=== PATIENT | male | born 1995 | race Caucasian/White ===

== ENCOUNTER 2024-02-02 20:17 | Emergency (ER) | payer BC, SELFPAY ==
[2024-02-02 20:19] VITALS: BP 132/74
[2024-02-02] MEDS: TYLENOL 1000 MG PO (20:27)
[2024-02-02 20:36] LABS: % Basophils 0.7 % (0-2); % Eosinophils 0.4 % (0-6); % Immature Granulocytes 0.4 % (0-0.5); % Lymphocytes 26.9 % (20.5-51.1); % Monocytes 6.5 % (1.7-9.3); % Neutrophils 65.1 % (42.2-75.2); Absolute Basophils 0.1 10^3/uL (0-0.2); Absolute Eosinophils 0.1 10^3/uL (0-0.7); Absolute Immature Granulocytes 0.1 10^3/uL (0-0.05); Absolute Lymphocytes 3.3 10^3/uL (1.2-3.4); Absolute Monocytes 0.8 10^3/uL (0.1-0.6); Hematocrit 45.2 % (39.0-52.0); Hemoglobin 15.5 g/dL (13.0-18.0); Mean Corp Hgb Conc. 34.3 g/dL (33.0-37.0); Mean Corpuscular Hgb 31.6 pg (27.0-31.0); Mean Corpuscular Volume 92.1 fL (80.0-94.0); Mean Platelet Volume 9.3 fL (7.4-10.4); Nucleated Red Blood Cells % 0 % (-); Platelet Count 410 10^3/uL (130-400); Red Blood Cell Count 4.91 10^6/uL (4.70-6.10); Red Cell Dist. Width 11.9 % (11.5-14.5); White Blood Cell Count 12.2 10^3/uL (4.8-10.8)
[2024-02-02 20:51] LABS: ALT (SGPT) 30 U/L (0-50); AST (SGOT) 30 U/L (17-59); Alkaline Phosphatase 62 U/L (38-126); Blood Urea Nitrogen 11 mg/dl (9-20); Carbon Dioxide 29 mmol/L (22-30); Chloride 101 mmol/L (98-107); Glucose 94 mg/dl (70-99); Potassium 4.2 mmol/L (3.5-5.1); Sodium 138 mmol/L (135-145); Total Protein 8.3 g/dl (6.3-8.2); eGFR > 60.00
[2024-02-02 20:54] LABS: COVID-19 Antigen Negative (Negative)
[2024-02-02 22:04] VITALS: BMI 31.1
[2024-02-02 22:06] VITALS: BP 124/75
[2024-02-02] MEDS: NSS 1000 IV (22:52)
[2024-02-02 23:00] VITALS: BP 119/82
[2024-02-02 23:14] LABS: D-Dimer < 0.27 ug/mlFEU (0.00-0.50)
[2024-02-03] VITALS: BP 119/86
[2024-02-03 00:05] LABS: TSH Reflex To Free T4 1.08 uIU/ml (0.47-4.68)
--- NOTE | 2024-02-03 00:34 | ED.GENMED ---
History of Present Illness
General
Chief Complaint: Heart Rate Problem
Source: patient
Exam Limitations: none
Time Seen by Provider: 02/02/24 22:37
History of Present Illness
History of Present Illness:
29-year-old male complaining of feeling dizzy somewhat describing disequilibrium or vertigo lightheaded and nausea. Family member checked his heart rate which was 170. He denies chest pain shortness of breath or other complaints. This has been
going on for days.
Past History
Past History
ED Past Medical History: None
Review of Systems
Review of Systems
All Other Systems: Not applicable
Constitutional: Reports fever (Denies) and chills (Denies)
Phy Exam
Physical Exam
Physical Exam:
GENERAL: Alert and oriented in no apparent distress
EYE: Orbits normal.
NECK: Supple, no significant adenopathy.
ENT: Pharynx without erythema
CARDIAC: Regular rate and rhythm without any obvious murmurs.
LUNGS: Clear breath sounds,normal
ABDOMEN: Soft, without focal tenderness or distention
NEUROLOGICAL: Alert and oriented , grossly non-focal
SKIN: Warm and dry, no rash or lesion, no discoloration, skin intact.
MUSCULOSKELETAL: No edema,no deformity.Good color
PSYCH: Normal and appropriate interaction.
Course
Orders/Labs/Results
Orders:
Orders
02/02/24 20:23
Acetaminophen [Tylenol] 1,000 mg PO NOW STA
02/02/24 20:30
CMP [Comprehensive Metabolic Panel] Urgent
COVID-19 Antigen Urgent
Source: Nasal Swab
Complete Blood Count/With Diff Urgent
TSH Reflex To Free T4 Urgent
Comment: ADD ON
Influenza A+B Rapid Molecular Urgent
EULOGIO Source: Nasal Swab
Specimen Description:
02/02/24 22:47
Add On- LAB Urgent
Tests Added?: tsh reflex t4
EKG [Electrocardiogram (*1)] Urgent
Reason for Study: Tachycardia
EKG- Treatment ONCE
02/02/24 22:48
0.9% Sodium Chloride 1000 ml [Nss] 1,000 ml IV BOLUS
CXR2 [CR Chest - 2 Views ] Urgent
Comment:
Reason For Exam: tachycardia
02/02/24 22:51
D-Dimer Urgent
Abnormal Lab Results
02/02/24
20:30
WBC 12.2 H 10^3/uL
(4.8-10.8)
MCH 31.6 H pg
(27.0-31.0)
Plt Count 410 H 10^3/uL
(130-400)
Abs Immat Gran (auto) 0.1 H 10^3/uL
(0-0.05)
Absolute Neuts (auto) 8.0 H 10^3/uL
(1.4-6.5)
Absolute Monos (auto) 0.8 H 10^3/uL
(0.1-0.6)
Total Protein 8.3 H g/dl
(6.3-8.2)
02/02/24 20:30
02/02/24 20:30
Vital Signs
Initial and Last Documented VS:
Initial Vital Signs
Temp Pulse Resp BP Pulse Ox
100.4 F H 142 18 132/74 98
02/02/24 20:19 02/02/24 20:19 02/02/24 20:19 02/02/24 20:19 02/02/24 20:19
Last Documented Vital Signs
Temp Pulse Resp BP Pulse Ox
98.2 F 102 24 119/86 96
02/02/24 22:53 02/03/24 00:00 02/03/24 00:00 02/03/24 00:00 02/03/24 00:00
MDM/Problems Addressed
Differential Diagnosis Includes:
Patient describing an episode of lightheadedness nausea some disequilibrium. Most consistent with inner ear issue. However with a heart rate of 170 would have to consider atrial fibrillation or SVT. Throughout his ER stay he had no arrhythmias
just borderline tachycardia. With the 100.4 temp initially although repeat temperature normal, leukocytosis most suspicious of a viral syndrome. Stable for discharge to follow-up
*Radiology
Radiology exam reviewed: preliminary read by ED provider (Negative chest x-ray)
*Pulse Oximetry
Patient hypoxic: no
*EKG
Interpreted by ED Provider?: Yes
Interpretation: abnormal
Comparison EKG: no comparison EKG present
Heart Rate: 102
Rate: tachycardiac
Rhythm: sinus
[place]: normal axis
Interval: normal interval
QRS Pattern: normal QRS
Ischemia: no ischemia
*Replenishment Specialist Interpretation
Rate: normal
Interpretation: normal
Heart Rate: 97
Rhythm: sinus
*Critical Care Note
Total Time (30-74mins, 75-104mins- exclusive of procedures): Not Applicable
ED Attending Note
-
Portions of this chart may have been created with voice recognition software.� Occasional wrong word or��sound alike� substitutions may have occurred due to the inherent limitations of voice recognition software.
Discharge Plan
Departure
Patient Disposition: Home (Routine Discharge)
Date of Disposition: 02/03/24
Time of Disposition: 00:39
Patient with high blood pressure during this ER visit?: Yes
Discharge Problem:
Tachycardia/lightheadedness
Instructions: Tachycardia, Dizziness, Adult ED, BLOOD PRESSURE
Referrals:
Samson Madera MD [Active] - Next open appointment
Luis Romero DO [Family Provider] - Follow up in 2-3 days
Interventions
Interventions:
*Risk Screen - Suicide Last Done: 02/02/24 22:04
*General Assessment Last Done: 02/02/24 22:04
*Neglect/Abuse Screening Last Done: 02/02/24 22:04
ED- Fall Risk Assessment Last Done: 02/02/24 22:04
*ED COVID-19 Vaccine History Last Done: 02/02/24 22:04
ED- Cardiac Assessment Last Done: 02/02/24 22:11
ED- Pulmonary Assessment Last Done: 02/02/24 22:11
Discharge Date and Time
Print Language: [id number]
== END 2024-02-03 00:51 | disposition home or self-care (01) ==
LOC: EMR 20:17
PROVIDERS: EMERGENCY PHYSICIAN Emergency Medicine; FAMILY PHYSICIAN Family Medicine
DX: R00.0 Tachycardia, unspecified (principal); R42 Dizziness and giddiness; R03.0 Elevated blood-pressure reading, without diagnosis of hypertension; Z11.52 Encounter for screening for COVID-19
CPT/HCPCS: 99285; 96360; 71046; 80053; 84443; 85025; 85379; 87502; 87811; 93005